=== PATIENT | male | born 1940 | race Caucasian/White ===

== ENCOUNTER 2019-09-13 11:18 | Inpatient (IN) | payer MEDICARE, OTHER ==
[2019-09-13 12:21] LABS: Bacteria/HPF None Seen HPF (None Seen); Bilirubin Negative (Negative); Blood, Urine 2+ (Negative); Clarity Clear (Clear); Glucose, Urine (Dipstick) Normal (Negative); Leukocyte Negative Leu/uL (Negative); Nitrite Negative (Negative); Protein, Urine (Dipstick) 70 mg/dL (Neg-Trace); RBC/HPF 0-3 HPF (0-3); Squamous Epithelial None Seen HPF (0-3); Urobilinogen Normal mg/dL (Less than 2); WBC/HPF 0-3 HPF (0-3)
[2019-09-13 12:21] LABS: #Lymphocytes 0.4 thou/uL (1.20-3.40); #Monocytes 0.7 thou/uL (0.11-0.59); #Neutrophils 7.1 thou/uL (1.40-6.50); %Basophils 0.2 % (0.0-1.0); %Eosinophils 0.1 % (0.0-10.0); %Lymphocytes 4.3 % (21.0-51.0); %Monocytes 8.8 % (0.0-10.0); %Neutrophils 86.6 % (42.0-75.0); Hemoglobin 13.7 g/dL (14.0-18.0); Mean Corpuscular HGB CONC 33.7 g/dL (32.0-36.0); Mean Corpuscular Hemoglobin 32.5 pg (27.0-31.0); Mean Corpuscular Volume 96.5 fL (78.0-98.0); Mean Platelet Volume 8.6 fL (7.4-10.4); Platelet Count 154 thou/uL (130-400); RBC Distribution Width 12.9 % (11.5-14.5); Red Blood Cell (RBC) Count 4.22 mill/uL (4.70-6.10); White Blood Cell (WBC) Count 8.2 thou/uL (4.8-10.8)
[2019-09-13 12:27] LABS: Amphetamine Not Detected (NotDetected); Barbiturates Screen Not Detected (NotDetected); Benzodiazepine Screen Not Detected (NotDetected); Cocaine Metabolite Screen Not Detected (NotDetected); Medtox Control Line Valid? VALID (VALID); Medtox Reader # READER 4; Methadone Not Detected (NotDetected); Methamphetamine Not Detected (NotDetected); Opiate Screen Not Detected (NotDetected); Oxycodone Screen Not Detected (NotDetected); Phencyclidine (PCP) Not Detected (NotDetected); THC/Cannabinoid Screen Not Detected (NotDetected); Tricyclic Screen Not Detected (NotDetected)
[2019-09-13 12:30] LABS: INR-International Normal Ratio 1.1; PTT 25.4 sec (22.9-36.1)
[2019-09-13 12:41] LABS: ALT (SGPT) 21 U/L (8-55); AST (SGOT) 35 U/L (5-34); Acetaminophen Less than 6.0 mcg/mL (10.0-30.0); Albumin 3.2 g/dL (3.4-4.8); Alcohol Less than 10 mg/dL (Less than 10); Alkaline Phosphatase 79 U/L (40-110); Anion Gap 18 mmol/L (10-20); BUN (Urea Nitrogen) 34 mg/dL (8.4-25.7); CK (CPK) 658 U/L (30-200); Calc. Creatinine Clearance 0 mL/min (70-130); Calcium 8.2 mg/dL (7.8-10.44); Carbon Dioxide 17 mmol/L (23-31); Chloride 106 mmol/L (98-107); Estimated GFR-MDRD 37; Globulin 2.9 g/dL (2.4-3.5); Glucose 115 mg/dL (83-110); Lipase 16 U/L (8-78); Protein, Total 6.1 g/dL (5.8-8.1); Salicylate Less than 8.0 mg/dL (15.0-30.0); Sodium 137 mmol/L (136-145)
[2019-09-13 12:45] LABS: D-Dimer Test 19.05 *mcg/mL (0.27-0.43)
[2019-09-13] MEDS ORDERED: Aspirin 325 MG TAB ONE (12:58)
[2019-09-13] MEDS ORDERED: Acetaminophen/Codeine 30-300mg Tablet ONE (12:58)
[2019-09-13 13:01] LABS: CKMB 4.1 ng/mL (0-6.6)
--- NOTE | 2019-09-13 13:24 | CT ---
HEAD CT WITHOUT CONTRAST: Date: 09-13-2019 Comparison: None History: Found down. Slurred speech. History of stroke. Technique: Axial CT imaging at 5 mm intervals from vertex through skull base without contrast. FINDINGS: The visualized paranasal sinuses and mastoid air cells are well aerated. There is no displaced calvar ial fracture. There is atherosclerotic calcification of the cavernous carotid arteries. There is prominent diffuse cerebral volume loss. There is encephalomalacia within the frontal and par ietal lobe on the right, suggesting extensive prior right sided infarction. There is also encephaloma lacia within the occipital lobes suggesting areas of prior infarction, right greater than left. No in tracranial hemorrhage, midline shift, or mass effect. IMPRESSION: Findings suggesting numerous areas of prior infarction as detailed above, primarily right sided. No i ntracranial hemorrhage. POS: LA
[2019-09-13 13:30] LABS: Actual Bicarbonate (HCO3a) 17.1 mEq/L (22-28); Analyzer IN Cardio ER; Base Excess (BEa) -4.5 mEq/L (-2.0 to +3.0); Carboxyhemoglobin (COHb) 0.7 gm% (0.0-3.0); Hemoglobin (Hb) 14.6 g/dL (14.0-18.0); Potassium - ABG Lab 3.76 mmol/L (3.70-5.30); pH, Arterial 7.47 (7.35-7.45)
[2019-09-13 13:34] LABS: CO2 Tension 24.1 mmHg (35.0-45.0)
[2019-09-13 13:35] LABS: ALV-art Gradient 63.105 (0-20); O2 Tension (PaO2), arterial 56.5 mmHg (> 60.0); Puncture Site RRA
--- NOTE | 2019-09-13 13:35 | CT ---
CT OF CERVICAL SPINE WITHOUT CONTRAST: Date: 09-13-2019 Comparison: None History: Found down, slurred speech. Technique: Axial CT imaging at 2.5 mm intervals through the cervical spine noted with coronal and sag ittal reformatted imaging. FINDINGS: There is incompletely imaged interstitial and alveolar/ground glass opacity within the left upper lob e. There is partial opacification of the mastoid air cells bilaterally. The occipital condyles, the dens, the C1 ring, the craniocervical junction and the cervicothoracic ju nction demonstrate no acute findings. There is prominent degenerative change involving the atlantoaxi al interspace. There is prominent disc space narrowing with degenerative endplate change at C3-4, C4- 5, C5-6, and C6-7 with posterior osteophyte causing multilevel central canal stenosis. Bilateral face t and uncal vertebral osteophyte formation at these levels causes bilateral neural foraminal stenosis . There is no prevertebral soft tissue swelling. No displaced fracture or dislocation is seen. There is a hypodense nodule in the left lobe of the thyroid gland measuring 2.7 cm. IMPRESSION: 1. Incompletely imaged interstitial and alveolar opacities within the left upper lobe which suggests infectious pneumonitis or aspiration. Correlation with a chest radiograph is suggested. 2. Multilevel cervical spine degenerative change with no acute facture or dislocation. 3. Left thyroid nodule for which follow up thyroid ultrasound is advised. POS: LA
[2019-09-13] MEDS ORDERED: cefTRIAXone\\ROCEPHIN 1 GM VIAL ONE (13:45)
[2019-09-13] MEDS ORDERED: Azithromycin 500 MG VIAL ONE (13:50)
--- NOTE | 2019-09-13 14:02 | RAD ---
RIGHT HIP TWO PORTABLE VIEWS: History: Found down. FINDINGS: Degenerative changes at the hip. No acute fracture identified. IMPRESSION: No evidence of acute fracture. POS: AGW
--- NOTE | 2019-09-13 14:02 | RAD ---
LEFT ELBOW THREE PORTABLE VIEWS: FINDINGS: The positioning is suboptimal. No definite fracture identified. IMPRESSION: No acute finding identified. POS: AGW
--- NOTE | 2019-09-13 14:05 | RAD ---
LEFT HIP TWO VIEWS, PORTABLE: Indication: Patient was found down. FINDINGS: No evidence of fracture. Mild degenerative change. IMPRESSION: No acute fracture identified. POS: AGW
[2019-09-13] MEDS ORDERED: Iopamidol-370 76% 500 ML 1 ML ONE (14:17)
--- NOTE | 2019-09-13 14:17 | RAD ---
PORTABLE CHEST: Indications: Change in mental status. FINDINGS: There are hazy bilateral infiltrates in the mid and lower lung polanco bilaterally. Heart size is with in normal range. There is mild vascular congestion. IMPRESSION: Hazy bibasilar infiltrates. POS: AGW
[2019-09-13 14:57] LABS: Lactic Acid 1.9 mmol/L (0.5-2.2)
--- NOTE | 2019-09-13 15:05 | CT ---
CTA CHEST WITH CONTRAST: Technique: Axial tomograms were obtained following angio protocol with multiplanar reconstructions an d 3D post processing. Indications: Person found down. FINDINGS: No evidence of pulmonary embolus identified. Thoracic aorta shows atherosclerotic change. No evidence of dissection. Mediastinum unremarkable with nonspecific mediastinal and hilar lymph nodes. Review of the lungs show cardiomegaly with vascular congestion. Diffuse interstitial thickening is se en bilaterally. There is hazy ground glass opacity in the left upper lobe. Hazy ground glass opacity in the right mid dle lobe and right lower lobe. These areas of ground glass opacities may represent areas of acute inf iltrate. These areas of infiltrate are superimposed on chronic lung changes. There is honeycombing in both posterior lower lobes, more prominent on the right. Prominent parenchymal stranding seen bilate rally. IMPRESSION: 1. No evidence of pulmonary embolus. 2. Chronic lung changes seen as described above. There are areas of ground glass opacity scattered th roughout both lungs as described above. There is cardiomegaly and vascular congestion. Consideration to include edema, although the localized nature of the ground glass opacities would be concerning for areas of localized inflammatory infiltrate superimposed on congestion, edema, and chronic lung sewell deni. POS: AGW
[2019-09-13] MEDS: Sodium Chloride 0.9% 1,000 ML IV SCH (17:50)
[2019-09-13 18:09] VITALS: BMI 16.7
--- NOTE | 2019-09-13 19:11 | HP ---
CHIEF COMPLAINT: Fall. HISTORY OF PRESENT ILLNESS: This patient is an 79-year-old male, who has been living at home. His son and [id number] moved in with him about a year ago. The patient was generally pretty functional; however, a couple of months ago, he appeared to have some stroke-like symptoms, but did not want to come for evaluation partly because of coronavirus concerns. He subsequently over the past 4 to 5 days has had increased lethargy, sleeping more, and very poor p.o. intake according to his son. Today is his son's anniversary and he went out of town yesterday about 11 o'clock. He asked the neighbors to check on him, who have known him for many years. Apparently yesterday, he was doing about the same, but today, they went to check on him and he was on the bathroom floor and had a left elbow skin tear. He was unable to speak intelligibly and subsequently was brought to the emergency department for further evaluation. It is unknown how long the patient was actually on the floor, but certainly, it was likely less than 12 hours. The patient's son reports that his speech has gotten much worse over the last day or so that the patient has had some persistent weakness on the left side since his symptoms about 2 months ago. They report the patient is able to feed and bathe himself and go to the bathroom, but again for the last 5 days, he has had worsening generalized weakness. REVIEW OF SYSTEMS: Only noted as above. The patient is unable to give any additional history. The patient's son does believe that he has lost about 10 pounds over the last month, however. PAST MEDICAL HISTORY: Notable for hypertension. However, the patient's son says that they check his blood pressure routinely and it is more often on the low side than the high side. Therefore, they do not give him any blood pressure medications. Again is noted above, it sounds like they were describing a stroke-like event about 2 months ago resulting in some left-sided weakness and some speech deficits during that time as well. PAST SURGICAL HISTORY: The patient has had skin cancer removal. He had a lesion on his scalp that apparently required some type of skin flap, but details of that are not clear. FAMILY HISTORY: Nothing known that is contributory. SOCIAL HISTORY: The patient smokes 2 to 3 packs of cigarettes per day. No alcohol. He is a . He is full code and his son, Brett, who is with him here today would be his surrogate decision maker should that become necessary. ALLERGIES: CODEINE, MEPERIDINE, AND PENICILLIN. CURRENT MEDICATIONS: Aspirin. PHYSICAL EXAMINATION: VITAL SIGNS: On arrival, BP 152/75, pulse is 118, respirations 17, temperature 98.0, O2 saturations 87% on room air. Currently, BP 143/78, pulse 99, respirations 23, temperature is 97.5 axillary, and he is 100% on room air. GENERAL APPEARANCE: The patient is very thin. He is unkempt. He is supine in the exam bed. His speech is basically unintelligible, although, he does appear to understand reasonably well and can occasionally appropriately answer one or two words appropriately that are understandable. HEENT: PERRL. He has no OP lesions. NECK: Supple and symmetric. HEART: Regular without murmurs. LUNGS: Clear bilaterally, although, the exam is very limited by the disposable stethoscope. ABDOMEN: Soft, nontender, and nondistended. Positive bowel sounds. No masses. No organomegaly. EXTREMITIES: No cyanosis, clubbing, or edema. SKIN: Reveals extremely darkened skin, generally appears to be chronic sun exposure. Multiple superficial scars from what appeared to be some prior skin biopsies. NEURO: Again, the patient's speech is garbled. He appears to have left-sided facial droop. He has no significant movement in his left upper extremity. He is able to lift his left leg off the bed, but cannot seem to get him to cooperate with the other elements of the exam. LABORATORY DATA: White count 8.2, hemoglobin 13.7, platelets 154. INR is 1.1, PTT is 25.4. Blood gas; pH 7.47, pCO2 of 24, PO2 is 56. Sodium 137, potassium 4.0, chloride 106, CO2 of 17, BUN 34, creatinine is 1.77, glucose 115. Initial lactic acid was 2.9, subsequent was 1.9. Total bilirubin 1.0, AST 35, ALT 21, ammonia 24. CK 658. Troponin 0.116, subsequent 0.135. BNP 59.2. Albumin 3.2. Urinalysis; largely unremarkable trace protein. Urine drug screen negative. Alcohol negative. CT scan of the brain suggests numerous areas of prior infarct. These include areas in the frontal and parietal lobe on the right suggesting extensive prior right- sided infarction, encephalomalacia within the occipital lobe suggesting prior infarction, right greater than the left. There is no intracranial hemorrhage present. C- spine incompletely imaged. Interstitial and alveolar opacities within the lung noted. Multilevel cervical spine degenerative changes. Left thyroid nodule. Left elbow negative. Hip x-rays, no fracture. Chest x-ray, hazy bibasilar infiltrates. CTA, no PE, chronic lung changes seen with honeycombing in both posterior lower lobes , more prominent on the right. Areas of ground-glass opacity scattered throughout both lungs. There are cardiomegaly and vascular congestion, considerations to include edema, although, localized nature of the ground-glass opacities would be concerning for local inflammatory infiltrate superimposed on congestion edema and chronic lung changes. EKG; sinus tach with some left atrial enlargement, pulse 106, no ischemic findings. IMPRESSION AND PLAN: 1. Pneumonia. The patient has bilateral infiltrates, which have a ground-glass appearance are peripheral and could represent a bacterial or viral pneumonia or less likely some pulmonary edema. We will cover with antibiotics for community- acquired pneumonia with Rocephin and azithromycin. Some consideration should probably be given to aspiration pneumonitis. Given his recent strokes, will no more once he has speech therapy evaluation. The patient's son does not give any history of him having much in the way of swallowing difficulties, although, he has been losing weight. He will have a COVID test sent and he will remain in isolation until the results are known. Concerning features for possible COVID include the normal white count along with the very elevated D-dimer. 2. Acute hypoxic respiratory failure. Likely a chronic component given his smoking history. It is unclear what the patient's long-term status is. He is a 2-3 pack per day smoker and has chronic lung disease on CT. He was initially saturating 87% on room air in the emergency department; however, subsequent O2 saturations were better at 100% on RA. He has p.r.n. oxygen ordered to keep sats around 92%. 3. Suspected COVID-19 infection. Again, he has a normal white count, very elevated D-dimer, and CT scan findings concerning for possible COVID type picture. He will remain in isolation until COVID test is back. We will not start dexamethasone at this time as the picture is not entirely clear. I am going to order CRP and ferritin to establish baseline for this patient. 4. Cerebrovascular accident. The patient has symptoms of a stroke with basically left upper extremity paralysis, left facial droop, and currently with some garbled speech. I suspect his decline currently is because of some underlying infection ; however, a new stroke cannot entirely be ruled out at this time. He needs an MRI of the brain, however, that likely will not happen until COVID is ruled out. We will go ahead and order the MRI, Speech Therapy, Physical Therapy, Occupational Therapy, and Neuro Consult. We will keep him on aspirin and start a statin. Keep him on telemetry. Order echocardiogram and carotid Dopplers. 5. Chronic kidney disease, stage 3B. We do have labs in the system going back to December of 2017, at which time, his GFR was 36 and he is at his baseline now. 6. Mild rhabdomyolysis with a CK of 658. We will need to recheck that likely due to his fall and being down. High risk because of CKD and advanced age. 7. Elevated troponin. Given the patient's age and renal function, these are likely consistent baseline numbers for him and not likely representing ischemia. We will continue to follow serial troponins. 8. Mild metabolic acidosis, with respiratory alkalosis, likely due to his chronic kidney disease and acute infection. He has received significant fluid resuscitation for sepsis protocol, ultimately receiving 2 L. I am trying to avoid being overly aggressive with the fluids at this point as there is potentially some concern for pulmonary edema on his chest imaging, although, his BNP was normal at 59.2. He is generally hemodynamically stable otherwise. DISPOSITION: Unfortunately, the patient appears to be somewhat unkempt. He has presumably been providing most of his own senior living type care at home, not sure that will be a good option going forward and will likely need to get Case Management involved prior to discharge. We will go ahead and put that consult in. Job ID: [id number] [facility]
[2019-09-13 19:26] LABS: Actual Bicarbonate (HCO3a) 15.7 mEq/L (22-28); Base Excess (BEa) -5.7 mEq/L (-2.0 to +3.0); Calcium, Ionized (arterial) 1.09 mmol/L (1.12-1.30); Carboxyhemoglobin (COHb) 0.7 gm% (0.0-3.0); Hemoglobin (Hb) 13.9 g/dL (14.0-18.0); Potassium - ABG Lab 3.76 mmol/L (3.70-5.30); pH, Arterial 7.47 (7.35-7.45)
[2019-09-13 19:28] LABS: CO2 Tension 21.8 mmHg (35.0-45.0)
[2019-09-13 19:29] LABS: Puncture Site RR
[2019-09-13] MEDS: Atorvastatin Calcium 40 MG TAB PO SCH (22:09)
[2019-09-14 02:01] LABS: Actual Bicarbonate (HCO3a) 14.5 mEq/L (22-28); Base Excess (BEa) -6.7 mEq/L (-2.0 to +3.0); Carboxyhemoglobin (COHb) 0.4 gm% (0.0-3.0); O2 Tension (PaO2), arterial 68.5 mmHg (> 60.0); Potassium - ABG Lab 3.63 mmol/L (3.70-5.30); pH, Arterial 7.47 (7.35-7.45)
[2019-09-14 02:02] LABS: CO2 Tension 20.3 mmHg (35.0-45.0); Puncture Site LRA
[2019-09-14 02:03] LABS: ALV-art Gradient 262.625 (0-20)
--- NOTE | 2019-09-14 02:20 | PDOC.EVN ---
Event Note - Event Note Event Note: Patient over time becoming tachypneic and was desaturating on floor, moved to IMCU on HFNC now again in 40s, ABG with sufficient oxygenation and saturation is 95-100%, however somewhat altered, may be from alkalosis, not yet intubation candidate but is full code will monitor closely and move to CCU and place pulmonary consult for AM.
[2019-09-14 04:11] LABS: Anion Gap 19 mmol/L (10-20); BUN (Urea Nitrogen) 34 mg/dL (8.4-25.7); CK (CPK) 1997 U/L (30-200); Calc. Creatinine Clearance 32 mL/min (70-130); Calcium 7.8 mg/dL (7.8-10.44); Carbon Dioxide 13 mmol/L (23-31); Cardiac Risk 8.5 (Less than 4.5); Chloride 113 mmol/L (98-107); Cholesterol 128 mg/dl (< 200 Desired); Estimated GFR-MDRD 39; Glucose 106 mg/dL (83-110); HDL Cholesterol 15 mg/dL (>60 Neg Risk); LDL Cholesterol, Calculated 76 mg/dL; Potassium 3.6 mmol/L (3.5-5.1); Sodium 141 mmol/L (136-145); Triglycerides 186 mg/dL (Less than 150)
[2019-09-14 04:28] LABS: Band 6 % (5-11); Hemoglobin 13.7 g/dL (14.0-18.0); Hypochromia SLIGHT = 6-15 cells (100X) (0-5/hpf); Lymphocytes 4 % (21-51); MDiff Complete? YES; Mean Corpuscular HGB CONC 34.5 g/dL (32.0-36.0); Mean Corpuscular Hemoglobin 32.5 pg (27.0-31.0); Mean Platelet Volume 9.1 fL (7.4-10.4); Monocytes 8 % (0-10); Neutrophil 82 % (42-75); Platelet Count 174 thou/uL (130-400); Platelet Morphology Comment Appears Adequate; RBC Distribution Width 12.7 % (11.5-14.5); Red Blood Cell (RBC) Count 4.21 mill/uL (4.70-6.10); White Blood Cell (WBC) Count 10.8 thou/uL (4.8-10.8)
[2019-09-14] MEDS: Aspirin 325 mg Enteric Coated Tablet PO SCH (07:07)
[2019-09-14 08:08] LABS: Troponin I 0.333 ng/mL (< 0.028)
[2019-09-14] MEDS ORDERED: Enoxaparin Sodium 40 MG/0.4 ML SYRINGE SC SCH ×2 (09:00→21:00)
[2019-09-14] MEDS ORDERED: Prevnar 13-Val Conj/PF 0.5 ML SYRINGE IM ONE (09:00)
[2019-09-14] MEDS: cefTRIAXone\\ROCEPHIN 1 GM in Sodium Chloride 0.9% 100 ML IVPB SCH (11:28)
[2019-09-14] MEDS: Sodium Chloride 0.9% 1,000 ML IV SCH (11:32)
--- NOTE | 2019-09-14 12:01 | EKG ---
Test Reason : FALL Blood Pressure : / mmHG Vent. Rate : 106 BPM Atrial Rate : 106 BPM P-R Int : 124 ms QRS Dur : 074 ms QT Int : 336 ms P-R-T Axes : 091 -24 010 degrees QTc Int : 446 ms Poor data quality, interpretation may be adversely affected Sinus tachycardia Possible Left atrial enlargement Nonspecific ST and T wave abnormality Abnormal ECG Confirmed by VINAY CERRATO, WILBERTO ([id number]), editor in chief newspaper TETE RIVERA ([id number]) on 09/14/2019 12:01:26 PM Referred By: VINAY Confirmed By:WILBERTO MCLEAN MD
[2019-09-14] MEDS: Azithromycin 500 MG in Sodium Chloride 0.9% 250 ML 250 ML IVPB SCH (12:28)
--- NOTE | 2019-09-14 13:56 | CON ---
NEUROLOGY CONSULTATION DATE OF CONSULTATION: 09/14/2019 REASON FOR CONSULTATION: Stroke. HISTORY OF PRESENT ILLNESS: Mr. Brett Dumas is an 79-year-old male, who was consulted for stroke-like symptoms. The patient lives at home with his son and [id number] who moved with him recently and he was pretty functional. However, he developed some stroke-like symptoms a 2 months ago. The patient did not get evaluated for those symptoms because of concern about coronavirus. According to the son, over the past few days, he has been extremely lethargic and was more somnolent with poor intake. The son has gone out of town and asked the neighbors to check on him and they found him extremely confused, so they decided to call 911 and bring him to the emergency room for further evaluation. His speech was also worse and he has weak on the left side of the body, which has worsened. This weakness started 2 months ago, but he was still able to feed himself and go to the restroom, but since the last 5 days , he had worsening generalized weakness in addition to the left-sided weakness, and his speech is also to worsened and became extremely somnolent. REVIEW OF SYSTEMS: Unobtainable due to mental status. PAST MEDICAL HISTORY: Hypertension, left-sided deficits for the last 2 months. PAST SURGICAL HISTORY: Skin cancer removal. FAMILY HISTORY: No significant family history. SOCIAL HISTORY: The patient smokes 2 to 3 packs of cigarettes per day. Denies alcohol. He is a . He lives with his son and [id number]. ALLERGIES: CODEINE, MEPERIDINE, PENICILLIN. CURRENT MEDICATIONS: Aspirin. PHYSICAL EXAMINATION: VITAL SIGNS: Blood pressure 150/70, pulse 100, respirations 18. GENERAL APPEARANCE: Ill-appearing. HEENT: Normocephalic, atraumatic. CARDIOVASCULAR SYSTEM: Regular rate and rhythm. CHEST: Clear. ABDOMEN: Soft. NEUROLOGIC: Mental status: The patient is extremely somnolent. He opens eyes to verbal stimuli, does not track, does not follow commands. Cranial nerves: Pupils are equal and reactive to light. Left facial droop. Corneals are positive. He moves neck in both directions. Hearing seems to be intact. He is extremely somnolent and did not speak a single word. Motor: He did not cooperate with the exam. Withdraws in all 4 extremities to nailbed pressure, right greater than left. Reflexes: Deferred. Sensory: Withdraws in right upper and lower extremities greater than left upper and lower extremities to nailbed pressure. Gait: Deferred due to the patient's safety reasons. DATA REVIEWED: I reviewed the labs and the CT scan of the head, which shows numerous prior infarcts. These also include areas in the frontal and parietal lobes of the prior infarctions. CT angiogram did not reveal any hemodynamically significant stenosis. Chest x-ray did show infiltrates. ASSESSMENT AND PLAN: Mr. Brett Dumas is consulted to rule out stroke because of left-sided weakness. He also has pneumonia with ground-glass appearance and bilateral infiltrates. Currently, he is being ruled out for COVID. Recommend MRI of the brain, 2D echo, and carotid Dopplers once the patient is ruled out for COVID. Consider aspirin and statin for secondary stroke prevention. PT/OT/Speech once the patient is ruled out. Continue telemetry. Continue medical management per primary team. Thank you for the consult. Job ID: [id number] [facility]
[2019-09-14 14:03] LABS: SARS-CoV-2 MS2 Positive; SARS-CoV-2 N Gene Positive; SARS-CoV-2 S Gene Positive; SARS-CoV-2 orf1ab Positive
--- NOTE | 2019-09-14 15:07 | PDOC.HOSPP ---
- Subjective Encounter Date: 09/14/19 Subjective: Reviewed the chart. got update from the nursing, stable to come to [facility] obs., mentation remains the same, not following commands. Pulm initiated the transfer to obs area. sating 97% w.. 3 li O2. - Objective Vital Signs & Weight: Vital Signs (12 hours) Temp Pulse Ox 09/14/19 14:55 99.4 F 09/14/19 13:08 97 09/14/19 11:09 100 09/14/19 08:00 99 F 09/14/19 07:39 99 09/14/19 07:00 99 F 09/14/19 06:58 100 09/14/19 04:00 100 Weight Admit Weight 145 lb Weight 145 lb 6.4 oz Most Recent Monitor Data Heart Rate from ECG 82 NIBP 120/57 NIBP BP-Mean 78 Respiration from ECG 30 SpO2 95 I&O: 09/13/19 09/14/19 09/15/19 06:59 06:59 06:59 Intake Total 447 0 Output Total 980 Balance 447 -980 Result Diagrams: 09/14/19 03:17 09/14/19 03:17 Hospitalist ROS - Medication Medications: Active Medications Generic Name Dose Route Start Last Admin Trade Name Freq PRN Reason Stop Dose Admin Aspirin 325 mg 09/14/19 09:00 09/14/19 07:07 Ecotrin PO 325 mg DAILY JASON Administration Atorvastatin Calcium 40 mg 09/13/19 21:00 09/13/19 22:09 Lipitor PO Not Given HS JASON Enoxaparin Sodium 40 mg 09/14/19 09:00 09/14/19 07:07 Lovenox SC 40 mg 0900 JASON Administration Azithromycin 500 mg/ Sodium 250 mls @ 250 mls/hr 09/14/19 14:00 09/14/19 12: 28 Chloride IVPB 250 mls 1400 JASON Administration Ceftriaxone Sodium 1 gm/ 100 mls @ 200 mls/hr 09/14/19 13:00 09/14/19 11:28 Sodium Chloride IVPB 100 mls 1300 JASON Administration Sodium Chloride 1,000 mls @ 50 mls/hr 09/13/19 16:15 09/14/19 11:32 Normal Saline 0.9% IV 1,000 mls .Q20H JASON Administration Hosp A/P - Plan COVID Penumonia hypoxic res failure d/t abvoe Metabolic encephalopathy 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 3 li at 97% --stable to transfer to obs unit, though it appers his mentation is not at baseline -- added decadron, switched lovenox to bid doses --fw periodically ferritin, d-dimer and crp. appreciate help from Dr. Canas. - DNR -palliative c/s placed.
--- NOTE | 2019-09-14 16:53 | CON ---
DATE OF CONSULTATION: 09/14/2019 HISTORY OF PRESENT ILLNESS: Brett Dumas is an 79-year-old male. His son moved in with him 4 months ago. According to the nurses, he had the appearance of not having bathes for months. He apparently has been spending a lot of time in bed lately according to his son. He has been hard to wake up. Son left town and asked neighbors to check on him, so they called an ambulance. He subsequently has been admitted. He is unable to give a history. PAST MEDICAL HISTORY: Remarkable for: 1. CVA. 2. History of hypertension. 3. History of skin cancer. FAMILY HISTORY: Negative for lung disease in early age. SOCIAL HISTORY: Son says all he does is sit in his room and smoke 2-3 packs of cigarettes a day. He is not a daily drinker. He has lost his . REVIEW OF SYSTEMS: Ten points unobtainable. ALLERGIES: REPORTS ALLERGIES TO DEMEROL, CODEINE, AND PENICILLIN. MEDICATIONS: Prior to admission, he was on aspirin. PHYSICAL EXAMINATION: GENERAL: He is in no distress. He is nonverbal. He moves all 4 extremities spontaneously, will not follow commands. VITAL SIGNS: He is afebrile, heart rate 82, blood pressure 120/57, respiratory rates in the 20s, oximetry is in the mid 90s on a high-flow cannula 50%. HEAD AND NECK: Unremarkable. LUNGS: Distant and clear. HEART: Regular rhythm. ABDOMEN: Soft and nontender. EXTREMITIES: Without edema or asymmetry. NEUROLOGIC: He may have a left facial droop. It is impossible to assess strength. He is very disheveled, even though he has been aggressively bathed by his nurse. LABORATORY DATA: Chest radiograph shows bilateral infiltrates, although there is more lobar consolidation in the left upper lobe than the right lower lobe, suggesting maybe he has an aspiration component to this. His COVID screen is positive. White count is 10.8, hemoglobin 13.7, platelets 174. IMPRESSION: 1. COVID-19 pneumonia. 2. Possible coronavirus disease due to aspiration pneumonia. 3. History of cerebrovascular accident several months back. It is unclear what point in the COVID illness spectrum he has been in bed for quite some time. I would suspect he is at the tail end of this, but there is no way to figure this out. We will continue supportive care. I had a long discussion about end-of-life issues with the son who wants him to be a do not resuscitate patient. This is witnessed by Mynor Brock, his nurse as well. This is a 70 min consult with greater than 50% of the time spent on unit with coordination of care. Job ID: [id number] [facility]
[2019-09-14] MEDS: Atorvastatin Calcium 40 MG TAB PO SCH (22:40)
--- NOTE | 2019-09-14 23:39 | PDOC.EVN ---
Event Note - Event Note Event Note: Notified by RN, patient with increased secretions. Due to COVID rule out, requesting scopolamine patch to help decrease secretions and lessen frequency of suction patient is requiring.
[2019-09-14] MEDS ORDERED: Scopolamine 1.5 mg/72 hour Patch TD SCH (23:59)
[2019-09-15] MEDS ORDERED: Enoxaparin Sodium 40 MG/0.4 ML SYRINGE SC SCH (09:00)
[2019-09-15] MEDS: Dexamethasone 4 mg/ml Vial SLOW IVP SCH (09:05)
[2019-09-15] MEDS: Aspirin 325 mg Enteric Coated Tablet PO SCH (09:05)
[2019-09-15] MEDS: Sodium Chloride 0.9% 1,000 ML IV SCH (09:07)
[2019-09-15] MEDS: cefTRIAXone\\ROCEPHIN 1 GM in Sodium Chloride 0.9% 100 ML IVPB SCH (12:29)
[2019-09-15] MEDS ORDERED: Morphine 2 MG/ML SYRINGE SLOW IVP PRN (13:38)
[2019-09-15] MEDS: Azithromycin 500 MG in Sodium Chloride 0.9% 250 ML 250 ML IVPB SCH (14:21)
[2019-09-15] MEDS: Morphine 4 MG/ML VIAL SLOW IVP PRN ×2 (14:21→16:52)
--- NOTE | 2019-09-15 15:26 | PDOC.HOSPP ---
- Subjective Encounter Date: 09/15/19 Encounter Time: 11:20 Subjective: pt on high flow O2 at 40 and sating 96% pt had a temp this am. he does not look well, tachypnic. blood royal of 28th - no growth, on CTX, zithro. ID visited him this afternoon. - Objective Vital Signs & Weight: Vital Signs (12 hours) Temp Pulse Resp BP Pulse Ox 09/15/19 09:57 100.2 F H 97 48 H 148/68 H 97 09/15/19 08:00 97 09/15/19 05:00 98.4 F 101 H 41 H 165/76 H 96 Weight Admit Weight 145 lb Weight 145 lb 6.4 oz Most Recent Monitor Data Heart Rate from ECG 85 NIBP 156/80 NIBP BP-Mean 105 Respiration from ECG 27 SpO2 96 I&O: 09/14/19 09/15/19 09/16/19 06:59 06:59 06:59 Intake Total 447 1366 Output Total 1590 Balance 447 -224 Result Diagrams: 09/14/19 03:17 09/14/19 03:17 Hospitalist ROS - Medication Medications: Active Medications Generic Name Dose Route Start Last Admin Trade Name Freq PRN Reason Stop Dose Admin Aspirin 325 mg 09/14/19 09:00 09/15/19 09:05 Ecotrin PO Not Given DAILY JASON Atorvastatin Calcium 40 mg 09/13/19 21:00 09/14/19 22:40 Lipitor PO Not Given HS JASON Dexamethasone 6 mg 09/15/19 09:00 09/15/19 09:05 Decadron SLOW IVP 6 mg DAILY JASON Administration Enoxaparin Sodium 40 mg 09/15/19 09:00 09/15/19 09:06 Lovenox SC 40 mg DAILY JASON Administration Azithromycin 500 mg/ Sodium 250 mls @ 250 mls/hr 09/14/19 14:00 09/15/19 14: 21 Chloride IVPB 250 mls 1400 JASON Administration Ceftriaxone Sodium 1 gm/ 100 mls @ 200 mls/hr 09/14/19 13:00 09/15/19 12:29 Sodium Chloride IVPB 100 mls 1300 JASON Administration Sodium Chloride 1,000 mls @ 50 mls/hr 09/13/19 16:15 09/15/19 09:07 Normal Saline 0.9% IV 1,000 mls .Q20H JASON Administration Morphine Sulfate 4 mg 09/15/19 13:37 09/15/19 14:21 Morphine SLOW IVP 4 mg Q1H PRN Administration AIR HUNGER Scopolamine 1.5 mg 09/14/19 23:59 09/14/19 23:55 Transderm Scop TD 1.5 mg Q3D JASON Administration - Exam ENT: normocephalic atraumatic Neck: supple Hosp A/P - Plan COVID Penumonia hypoxic res failure d/t abvoe Metabolic encephalopathy 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 3 li at 97% --stable to transfer to obs unit, though it appers his mentation is not at baseline -- added decadron, switched lovenox to bid doses --fw periodically ferritin, d-dimer and crp. appreciate help from Dr. Canas. - DNR -palliative c/s placed. 30th pt on high flow O2 at 40 and sating 96% TAchypnic, high BP high inflam'y markers CRP 18 Narinder 1379 Cr 1.6 -will follow the trend in the above markers -worsening resp..situation and fever -royal neg. [] -talk to RN, if temp >100.4, repeat the blood royal -ID saw him today, will wait for the input. -scopalamine, morphine -- lopressor and hydralazine PRN for high BP -adapt comfort care measures for the most part. Poor prognosis.
[2019-09-15] MEDS ORDERED: hydrALAZINE 20 MG/ML VIAL SLOW IVP PRN (15:39)
[2019-09-15] MEDS ORDERED: Metoprolol Tartrate 5 MG/5 ML VIAL IVP PRN (15:39)
--- NOTE | 2019-09-15 16:06 | CON ---
DATE OF CONSULTATION: 09/15/2019 REASON FOR CONSULTATION: COVID pneumonia. HISTORY OF PRESENT ILLNESS: An 79-year-old with history of prior CVA in July of this year. Reportedly, the patient was not formally evaluated in any medical setting because family was afraid of acquiring COVID infection, so they did not bring him to a medical attention. Anyway, he was found on the floor of the bathroom, unable to care for self, and was brought to the hospital. Apparently, family had left town. On arrival, BP 150/75, pulse 118, temperature 98, and O2 saturations were 87 on room air and 100 later on, still reportedly on room air. He was poorly groomed, appeared somewhat cachectic. He was oriented to self, place, and time. There was scarring in the right scalp from a previous skin biopsy, dry oral mucosa, and he is tachycardic, but no murmurs. Lungs with clear breath sounds. Initial findings included a white cell count 8.2, hemoglobin 13.7, platelets 154, and 86% neutrophils. D-dimer is 19. A pH 7.47, pCO2 of 24, and pO2 of 56. Sodium 137 and creatinine 1.77. AST was 35, ALT 21, and alkaline phosphatase 79. CK of 658 and troponin 0.116. Albumin 3.2. COVID was positive. The duration of illness is not clear. Thus far, he has received Rocephin, azithromycin, and Decadron. Apparently, Palliative Care has come to visit the patient. He has a do not resuscitate order. Currently, Mr. Dumas is awake, but he does not interact with the examiner, does not follow commands. He is tachypneic. MEDICAL HISTORY: 1. Prior CVA. 2. Malnutrition. 3. Hypertension. SURGICAL HISTORY: Skin cancer removal on the scalp area. FAMILY HISTORY: Not available. ALLERGIES: CODEINE AND PENICILLIN. SOCIAL HISTORY: Current smoker. A . Lives with son in town. CURRENT MEDICATIONS: 1. Electrolyte solution infusion. 2. Morphine. 3. Enoxaparin. 4. Decadron. 5. Ceftriaxone. 6. Azithromycin. PHYSICAL EXAMINATION: VITAL SIGNS: T-max 100.2, BP 140/60, pulse 97, respirations 48, and O2 saturation 97. SKIN: Area of excoriation in the back. Half of his pinna is missing, probably from surgical resection. There is an elbow laceration, which is irregular shaped, measuring about 1.5 cm to the left side. The patient has a peripheral IV access and has an indwelling Senior catheter. HEENT: Temporal wasting noted. Ocular movements are conjugate. Arcus senilis. Oral cavity with numerous missing teeth. NECK: Supple. No jugular vein distention. LUNGS: Symmetric air entry. No crackles or wheezing. HEART: S1 and S2. Regular rate with a short aortic murmur. ABDOMEN: Flat, scaphoid. No ascites. No organomegaly or bladder distention. EXTREMITIES: Marked atrophy of musculature of lower extremities. NEUROLOGIC: He has nonsustained clonus on the right side. His left side is weaker than the right with a decreased muscle tone and hyporeflexia. Plantar responses are indifferent on the left and upgoing on the right. He does not establish eye contact and does not interact with the examiner. LABORATORY DATA: Followup labs: White cell count 10.8, hemoglobin 13, and platelets 174 with 82% neutrophils. INR 1.1. Sodium 141 and creatinine 1.69, which is improved from admission. Ferritin is at 1379. CRP is at 18.35. Chest x-ray and CT of chest with ground-glass opacity changes in both lungs. Cervical spine CT with degenerative joint disease and thyroid nodule. ASSESSMENT: 1. Malnutrition. 2. Hypertension. 3. Prior cerebrovascular accident. 4. Now COVID pneumonia with severe manifestation, requiring high-flow O2. The patient has a do not resuscitate status and Palliative Care has evaluated the patient, unclear duration of illness on presentation. He is on Decadron and high-flow O2 and will continue with such interventions. Poor outcome is expected. Job ID: [id number]
--- NOTE | 2019-09-15 16:10 | PDOC.PALPN ---
Palliative Progress Note - Subjective High-flow O2, tachypnea. - Objective Vital Signs: Vital Signs - Most Recent Temp Pulse Resp BP Pulse Ox 100.2 F H 97 48 H 148/68 H 97 09/15/19 09:57 09/15/19 09:57 09/15/19 09:57 09/15/19 09:57 09/15/19 09:57 - Physical Exam Constitutional: cachectic, ill appearing, mild distress Respiratory: labored respirations Genitourinary: hill catheter Skin: fragile - Plan Plan: Communicated with patient son, understanding of fragile state of his father. Appreciates updates regarding his father. Patient receiving scopolamine to mitigate secretions. Morphine 4mg prn air hunger, encourage utilization of medication to ease distress of shortness of breath. Emotional support and Therapeutic listening offered. Will place bluetooth speaker in room to facilitate family talking to Mr Dumas 09/15. [30] minutes spent on this encounter with >50% of the time in counseling and coordination of care. - ROS Non Response: due to mental status
[2019-09-15] MEDS: Atorvastatin Calcium 40 MG TAB PO SCH (22:42)
[2019-09-16] MEDS: Sodium Chloride 0.9% 1,000 ML IV SCH ×2 (06:29→06:31)
[2019-09-16 06:53] LABS: Anion Gap 15 mmol/L (10-20); BUN (Urea Nitrogen) 63 mg/dL (8.4-25.7); Calc. Creatinine Clearance 24 mL/min (70-130); Calcium 7.7 mg/dL (7.8-10.44); Carbon Dioxide 16 mmol/L (23-31); Chloride 122 mmol/L (98-107); Estimated GFR-MDRD 29; Glucose 160 mg/dL (83-110); Potassium 3.9 mmol/L (3.5-5.1); Sodium 149 mmol/L (136-145)
[2019-09-16] MEDS: Enoxaparin Sodium 30 MG/0.3 ML SYRINGE SC SCH (09:18)
[2019-09-16] MEDS: Dexamethasone 4 mg/ml Vial SLOW IVP SCH (09:18)
[2019-09-16] MEDS: Aspirin 325 mg Enteric Coated Tablet PO SCH (09:19)
[2019-09-16] MEDS: Morphine 4 MG/ML VIAL SLOW IVP PRN ×2 (10:07→12:55)
--- NOTE | 2019-09-16 10:10 | PDOC.PALPN ---
Palliative Progress Note - Subjective Awake, non verbal - Objective Vital Signs: Vital Signs - Most Recent Temp Pulse Resp BP Pulse Ox 98.6 F 72 36 H 157/52 H 98 09/16/19 04:50 09/16/19 04:50 09/16/19 04:50 09/16/19 04:50 09/16/19 04:50 - Physical Exam Constitutional: cachectic, emaciated, encephalitic, ill appearing HEENT: moist MMs Respiratory: diminished lung sound, labored respirations, tachypnea Cardiovascular: RRR Gastrointestinal: incontinent Genitourinary: hill catheter Musculoskeletal: diffuse muscle atrophy Neurology: moves all 4 limbs Skin: bruising, fragile Deviation from normal: Oriented to self - Plan Plan: Education to give morphine more frequently PRN to mitigate accessory muscle use Increase Scopolamine to attempt to mitigate secretions, prevent aspiration as patient is having difficulty clearing. Emotional support offered to patient son. Will follow and revisit Goal of Care [30] minutes spent on this encounter with >50% of the time in counseling and coordination of care. - ROS Non Response: due to mental status
[2019-09-16] MEDS ORDERED: Scopolamine 1.5 mg/72 hour Patch TD SCH (11:00)
[2019-09-16] MEDS: cefTRIAXone\\ROCEPHIN 1 GM in Sodium Chloride 0.9% 100 ML IVPB SCH (12:46)
[2019-09-16] MEDS: Azithromycin 500 MG in Sodium Chloride 0.9% 250 ML 250 ML IVPB SCH (14:30)
--- NOTE | 2019-09-16 14:45 | PQF ---
CLINICAL DOCUMENTATION IMPROVEMENT CLARIFICATION FORM: ICD-10 Updated PLEASE DO AN ADDENDUM TO THE PROGRESS NOTE WITH ANY DOCUMENTATION UPDATES OR ADDITIONS AND CARRY THROUGH TO DC SUMMARY. THANK YOU. DATE: 09/16/2019 ATTN: Dr. Castellanos Please exercise your independent, professional judgment in responding to the clarification form. Clinical indicators are provided on the bottom of this form for your review Please check appropriate box(s) to clarify if the following diagnosis has been ruled in or ruled out: Sepsis [ x ] Ruled in diagnosis [x ] Continue to treat [ ] Resolved [ ] Ruled out diagnosis [ ] Improving [ ] Cannot rule out diagnosis [ Other diagnosis [ ] Unable to determine In addition, please specify: Present on Admission (POA): [ x ] Yes [ ] No [ ] Unable to determine For continuity of documentation, please document condition throughout progress notes and discharge summary. Thank You. CLINICAL INDICATORS - SIGNS / SYMPTOMS / LABS / RESULTS AND LOCATION IN MR ER Record 09/12: VS: BP 152/ 75, pulse 118, resp. 17. Temp. 98, O2 sat 87 RA DX: Sepsis Pneumonia H&P 09/12: Lab: Blood gas: PO2 56 Initial lactic acid 2.9, subsequent was 1.9 I/P: Pneumonia Acute hypoxic respiratory failure. 09/14 (Jasmin) COVID Pneumonia Hypoxic res failure Metabolic encephalopathy CVA w left hemiparesis RISKS: H&P 09/12: 79 yo. HTN. Pneumonia. Suspected COVID-19. CVA. CKD 3 TREATMENT: H&P 09/12: He has received significant fluid resuscitation for sepsis protocol. receiving 2 L. MAR: Order 09/12: IV Rocephin 1 gm MAR: Order 09/12: Zithromax 500mg IV Thank you, Bernice (This form is maintained as a part of the permanent medical record) 2014 [employer]. All Rights Reserved Bernice Carlin RN, BSN [email or web address] Cell [facility]
--- NOTE | 2019-09-16 15:24 | PDOC.HOSPP ---
- Subjective Encounter Date: 09/16/19 Encounter Time: 12:10 Subjective: lethargic, tachypnea;s ats 45 % w.. high flow O2. - Objective Vital Signs & Weight: Vital Signs (12 hours) Temp Pulse Resp BP Pulse Ox 09/16/19 09:00 97.7 F 70 26 H 156/68 H 99 09/16/19 04:50 98.6 F 72 36 H 157/52 H 98 Weight Admit Weight 145 lb Weight 145 lb 6.4 oz Most Recent Monitor Data Heart Rate from ECG 85 NIBP 156/80 NIBP BP-Mean 105 Respiration from ECG 27 SpO2 96 I&O: 09/15/19 09/16/19 09/17/19 06:59 06:59 06:59 Intake Total 1366 443 Output Total 1590 300 Balance -224 143 Result Diagrams: 09/14/19 03:17 09/16/19 06:15 Hospitalist ROS - Medication Medications: Active Medications Generic Name Dose Route Start Last Admin Trade Name Freq PRN Reason Stop Dose Admin Aspirin 325 mg 09/14/19 09:00 09/16/19 09:19 Ecotrin PO Not Given DAILY JASON Atorvastatin Calcium 40 mg 09/13/19 21:00 09/15/19 22:42 Lipitor PO Not Given HS JASON Dexamethasone 6 mg 09/15/19 09:00 09/16/19 09:18 Decadron SLOW IVP 6 mg DAILY JASON Administration Enoxaparin Sodium 30 mg 09/16/19 09:00 09/16/19 09:18 Lovenox SC 30 mg 0900 JASON Administration Azithromycin 500 mg/ Sodium 250 mls @ 250 mls/hr 09/14/19 14:00 09/15/19 14: 21 Chloride IVPB 250 mls 1400 JASON Administration Ceftriaxone Sodium 1 gm/ 100 mls @ 200 mls/hr 09/14/19 13:00 09/16/19 12:46 Sodium Chloride IVPB 100 mls 1300 JASON Administration Sodium Chloride 1,000 mls @ 50 mls/hr 09/13/19 16:15 09/16/19 06:31 Normal Saline 0.9% IV 1,000 mls .Q20H JASON Administration Morphine Sulfate 4 mg 09/15/19 13:37 09/16/19 12:55 Morphine SLOW IVP 4 mg Q1H PRN Administration AIR HUNGER Scopolamine 3 mg 09/16/19 11:00 09/16/19 10:13 Transderm Scop TD 3 mg Q3D JASON Administration Hosp A/P - Plan COVID Penumonia hypoxic res failure d/t abvoe Metabolic encephalopathy 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 3 li at 97% --stable to transfer to obs unit, though it appers his mentation is not at baseline -- added decadron, switched lovenox to bid doses --fw periodically ferritin, d-dimer and crp. appreciate help from Dr. Canas. - DNR -palliative c/s placed. pt on high flow O2 at 40 and sating 96% TAchypnic, high BP high inflam'y markers CRP 18 Narinder 1379 Cr 1.6 -will follow the trend in the above markers -worsening resp..situation and fever -royal neg. [] -talk to RN, if temp >100.4, repeat the blood royal -ID saw him today, will wait for the input. -scopalamine, morphine -- lopressor and hydralazine PRN for high BP -- Cw comfort care measures. Poor prognosis.
[2019-09-16] MEDS: Atorvastatin Calcium 40 MG TAB PO SCH (19:23)
[2019-09-17] MEDS: Morphine 4 MG/ML VIAL SLOW IVP PRN ×3 (02:42→09:52)
[2019-09-17] MEDS: Sodium Chloride 0.9% 1,000 ML IV SCH (04:19)
[2019-09-17 06:56] LABS: Anion Gap 15 mmol/L (10-20); BUN (Urea Nitrogen) 70 mg/dL (8.4-25.7); Calc. Creatinine Clearance 26 mL/min (70-130); Calcium 7.5 mg/dL (7.8-10.44); Carbon Dioxide 15 mmol/L (23-31); Chloride 124 mmol/L (98-107); Estimated GFR-MDRD 31; Glucose 161 mg/dL (83-110); Potassium 4.1 mmol/L (3.5-5.1); Sodium 150 mmol/L (136-145)
[2019-09-17] MEDS: Dexamethasone 4 mg/ml Vial SLOW IVP SCH (07:38)
[2019-09-17] MEDS: Enoxaparin Sodium 30 MG/0.3 ML SYRINGE SC SCH (07:39)
[2019-09-17 08:08] VITALS: BP 136/68; TEMP 98
[2019-09-17] MEDS: Aspirin 325 mg Enteric Coated Tablet PO SCH (08:42)
[2019-09-17] MEDS ORDERED: Potassium Chloride 40 MEQ in Dextrose 5% in Water 1,000 ML IV SCH (10:30)
[2019-09-17] MEDS ORDERED: Lorazepam 2 MG/ML VIAL SLOW IVP PRN (11:21)
--- NOTE | 2019-09-17 11:28 | PDOC.PALPN ---
Palliative Progress Note - Subjective On high flow O2, opens eyes but non verbal or able to follow commands. - Objective Vital Signs: Vital Signs - Most Recent Temp Pulse Resp BP Pulse Ox 98.0 F 68 36 H 136/68 95 09/17/19 08:00 09/17/19 09:50 09/17/19 09:50 09/17/19 08:00 09/17/19 09:50 - Physical Exam Constitutional: cachectic, emaciated, ill appearing, mild distress HEENT: EOMI, moist MMs, sclera anicteric Respiratory: accessory muscle use, diminished lung sound, labored respirations, tachypnea Deviation from normal: Adventicious to upper lobes Cardiovascular: RRR, diminished peripheral pulses Gastrointestinal: soft, non-tender, positive bowel sounds Genitourinary: hill catheter Deviation from normal: cyanotic nail beds to fingers Skin: bruising, fragile Deviation from normal: encephalopathic - Assessment (1) Respiratory failure Code(s): J96.90 - RESPIRATORY FAILURE, UNSP, UNSP W HYPOXIA OR HYPERCAPNIA Current Visit: Yes Status: Acute (2) Metabolic encephalopathy Code(s): G93.41 - METABOLIC ENCEPHALOPATHY Current Visit: Yes Status: Acute (3) COVID-19 Code(s): U07.1 - COVID-19 Current Visit: Yes Status: Acute (4) Physical deconditioning Code(s): R53.81 - OTHER MALAISE Current Visit: Yes Status: Acute (5) Palliative care encounter Code(s): Z51.5 - ENCOUNTER FOR PALLIATIVE CARE Current Visit: Yes Status: Acute - Plan Plan: Spoke with Dr Castellanos, son has communicated he wishes for his dad not to suffer and is requesting transition to hospice care. Added Ativan for restlessness, tachypnea. Continue Morphine PRN. Scopolamine appears to be mitigating oral secretions. Speech has seen patient and identified severe dysphagia secondary to muscle weakness and poor breath swallow coordination. Aspiration on all trials. Please also refer to Adriane Roberto RNutilization review coordinator notes *Order placed for hospice evaluation for symptom management [35] minutes spent on this encounter with >50% of the time in counseling and coordination of care. - ROS Non Response: due to mental status
[2019-09-17] MEDS: cefTRIAXone\\ROCEPHIN 1 GM in Sodium Chloride 0.9% 100 ML IVPB SCH (12:12)
[2019-09-17] MEDS: Azithromycin 500 MG in Sodium Chloride 0.9% 250 ML 250 ML IVPB SCH (13:36)
--- NOTE | 2019-09-17 15:28 | PDOC.HOSPP ---
- Subjective Encounter Date: 09/17/19 Encounter Time: 11:00 Subjective: pt not seen, palliative evaluated him, pt has crackles at the lung abses, aeration not clear. He is tachypnic and sating 95% with high flow O2, FIo2 of 50 % - Objective Vital Signs & Weight: Vital Signs (12 hours) Temp Pulse Resp BP Pulse Ox 09/17/19 09:50 68 36 H 95 09/17/19 08:00 98.0 F 71 32 H 136/68 90 L 09/17/19 04:00 99.2 F 67 29 H 142/79 H 99 Weight Admit Weight 145 lb Weight 145 lb 6.4 oz Most Recent Monitor Data Heart Rate from ECG 85 NIBP 156/80 NIBP BP-Mean 105 Respiration from ECG 27 SpO2 96 I&O: 09/16/19 09/17/19 09/18/19 06:59 06:59 06:59 Intake Total 443 800 600 Output Total 300 700 850 Balance 143 100 -250 Result Diagrams: 09/14/19 03:17 09/17/19 06:10 Hospitalist ROS - Medication Medications: Active Medications Generic Name Dose Route Start Last Admin Trade Name Victor Mq PRN Reason Stop Dose Admin Aspirin 325 mg 09/14/19 09:00 09/17/19 08:42 Ecotrin PO Not Given DAILY JASON Atorvastatin Calcium 40 mg 09/13/19 21:00 09/16/19 19:23 Lipitor PO Not Given HS JASON Dexamethasone 6 mg 09/15/19 09:00 09/17/19 07:38 Decadron SLOW IVP 6 mg DAILY JASON Administration Enoxaparin Sodium 30 mg 09/16/19 09:00 09/17/19 07:39 Lovenox SC 30 mg 0900 JASON Administration Azithromycin 500 mg/ Sodium 250 mls @ 250 mls/hr 09/14/19 14:00 09/17/19 13: 36 Chloride IVPB 250 mls 1400 JASON Administration Ceftriaxone Sodium 1 gm/ 100 mls @ 200 mls/hr 09/14/19 13:00 09/17/19 12:12 Sodium Chloride IVPB 100 mls 1300 JASON Administration Potassium Chloride 40 meq/ 1,020 mls @ 50 mls/hr 09/17/19 10:30 09/17/19 11: 22 Dextrose/Water IV 1,020 mls .[id number] JASON Administration Lorazepam 1 mg 09/17/19 11:21 09/17/19 13:36 Ativan SLOW IVP 1 mg Q4H PRN Administration Anxiety/Agitation Morphine Sulfate 4 mg 09/15/19 13:37 09/17/19 09:52 Morphine SLOW IVP 4 mg Q1H PRN Administration AIR HUNGER Scopolamine 3 mg 09/16/19 11:00 09/16/19 10:13 Transderm Scop TD 3 mg Q3D JASON Administration Hosp A/P - Plan COVID Penumonia hypoxic res failure d/t abvoe Metabolic encephalopathy 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 3 li at 97% --stable to transfer to obs unit, though it appers his mentation is not at baseline -- added decadron, switched lovenox to bid doses --fw periodically ferritin, d-dimer and crp. appreciate help from Dr. Canas. - DNR -palliative c/s placed. pt on high flow O2 at 40 and sating 96% TAchypnic, high BP high inflam'y markers CRP 18 Narinder 1379 Cr 1.6 -will follow the trend in the above markers -worsening resp..situation and fever -royal neg. [28th] -talk to RN, if temp >100.4, repeat the blood royal -ID saw him today, will wait for the input. -scopalamine, morphine -- lopressor and hydralazine PRN for high BP -- Cw comfort care measures. Poor prognosis. 2nd pt not seen today,as the palliative evaluated him. severe hypernatremia - D5 - Hospice consult - will wean him off most meds -comfort care meds only - morphine, ativan and scopalamine patch. -appreciate greatly help from palliative care.
--- NOTE | 2019-09-17 17:22 | PRG ---
DATE OF SERVICE: 09/17/2019 SUBJECTIVE: Alesia transferred to [facility]. He has been assessed by Palliative Care and he opens his eyes, but he is unable to follow commands and does not interact with the examiner, does not establish eye contact. PHYSICAL EXAMINATION: VITAL SIGNS: T-max 100.2 three days ago, it is now 98.0. BP 130/60, pulse 68. He is breathing 32 to 36 times a minute. O2 saturations are ranging from 90 to 95. He is on high-flow nasal cannula. GENERAL: He is tachypneic, does not interact with the examiner. LUNGS: Diminished breath sounds at bases. HEART: S1 and S2. ABDOMEN: Flat, scaphoid. He has indwelling Senior catheter. He has diffuse stiffness. Does not follow commands. LABORATORY DATA: White cell count 10.8, hemoglobin 13.7. Creatinine is 2.08 and we are not tracking the ferritin or CRP, he has only one value of each. Currently, he is on Decadron, Rocephin, and azithromycin. He had a chest CT on the , chronic lung changes and ground-glass opacity changes. ASSESSMENT AND DISCUSSION: Malnutrition, hypertension, prior cerebrovascular accident, COVID pneumonia with severe manifestation, on high-flow O2. Palliative Care consulted. On Decadron. Discontinue Rocephin and azithromycin. Job ID: [id number]
--- NOTE | 2019-09-18 15:59 | DIS ---
DATE OF ADMISSION: 09/13/2019 DATE OF DISCHARGE: 09/17/2019 DISCHARGE DIAGNOSES: 1. COVID pneumonia, with severe manifestation, requiring high-flow oxygen. 2. Hypoxic respiratory failure. 3. Metabolic encephalopathy. 4. Cerebrovascular accident with left hemiparesis. 5. Chronic kidney disease. 6. Metabolic acidosis. 7. Hypertension. 8. Protein calorie moderate malnutrition. 9. Hypertension. 10. COVID pneumonia Pertinent lab markers, CRP was 18, ferritin level 1379, creatinine 1.6. HOSPITAL COURSE: This is an 79-year-old male, admitted with COVID pneumonia positive. He had stroke-like symptoms on initial presentation. He used to be functional at baseline. Prior to this, he was not evaluated for stroke, though symptoms are 2 months old. He was worsening the last few days including somnolence and poor p.o. intake. On the day of admission, the family was out of town, and the son asked the neighbors to check and neighbor found the patient being very confused, so he was brought in. COVID was positive. The duration of the illness is not clear. He has received azithromycin, Rocephin as well as Decadron. Due to worsening of his hypoxic condition, he was on high-flow oxygen. The patient did not improve despite the medical management. Palliative helped with goals of care with family and code status changed to DNAR. Hospice referral made. The patient is transferred to inpatient hospice. His prognosis is quite poor. Job ID: [id number] MTDD
== END 2019-09-17 21:09 | disposition hospice, inpatient (51) | DRG 871 ==
LOC: ERS 11:18 → 2SW 16:55 → CCU 21:23 → T4-B 09-14 22:36
PROVIDERS: ADMIT Internal Medicine; ATTEND Internal Medicine
PROC: 8E0ZXY6 Isolation (ICD-10-PCS; principal; 2019-09-13)
DX: A41.89 Other specified sepsis (principal); U07.1 COVID-19; G93.41 Metabolic encephalopathy; J12.89 Other viral pneumonia; J96.01 Acute respiratory failure with hypoxia; I63.9 Cerebral infarction, unspecified; E46 Unspecified protein-calorie malnutrition; Z68.1 Body mass index [BMI] 19.9 or less, adult; E87.2 Acidosis; R64 Cachexia; G81.94 Hemiplegia, unspecified affecting left nondominant side; E87.0 Hyperosmolality and hypernatremia; Z51.5 Encounter for palliative care; Z66 Do not resuscitate; F17.210 Nicotine dependence, cigarettes, uncomplicated; N18.3 Chronic kidney disease, stage 3 (moderate); I12.9 Hypertensive chronic kidney disease with stage 1 through stage 4 chronic kidney disease, or unspecified chronic kidney disease; Z88.5 Allergy status to narcotic agent; Z88.8 Allergy status to other drugs, medicaments and biological substances; Z79.82 Long term (current) use of aspirin; Z79.899 Other long term (current) drug therapy
CPT/HCPCS: 36415; 70450; 71045; 71275; 72125; 80048; 80053; 80061; 80306; 80307; 81003; 81015; 82140; 82550; 82553; 82728; 82805; 83605; 83690; 83880; 84443; 84484; 85025; 85379; 85610; 85730; 86140; 87040; 87635; 93005; 96360; 96361; 96365; 96367; J0456; J0696; J1100; J1650; J2060; J2270; J3480; J3490; J7050; J7070; Q9967; U0003

== ENCOUNTER 2019-09-17 21:22 | Inpatient (IN) | payer MEDICARE, OTHER ==
[2019-09-17] MEDS ORDERED: Ondansetron PF 4 MG/2 ML Vial IVP PRN (21:33)
[2019-09-17] MEDS ORDERED: Scopolamine 1.5 mg/72 hour Patch TOP PRN (21:33)
[2019-09-17] MEDS ORDERED: Lorazepam 2 MG/ML VIAL SLOW IVP PRN (21:35)
[2019-09-17] MEDS ORDERED: Bisacodyl 10 MG SUPP PR PRN (21:36)
[2019-09-17] MEDS ORDERED: Morphine 2 MG/ML VIAL SLOW IVP PRN (21:36)
[2019-09-17] MEDS ORDERED: Lorazepam 2 MG/ML VIAL SLOW IVP SCH (21:45)
[2019-09-17] MEDS: Morphine 4 MG/ML VIAL SLOW IVP SCH (22:00)
[2019-09-18] MEDS: Lorazepam 2 MG/ML VIAL SLOW IVP SCH ×7 (00:17→23:56)
[2019-09-18] MEDS: Morphine 4 MG/ML VIAL SLOW IVP SCH ×6 (02:25→22:15)
[2019-09-19] MEDS: Morphine 4 MG/ML VIAL SLOW IVP SCH ×4 (01:51→14:32)
[2019-09-19] MEDS: Lorazepam 2 MG/ML VIAL SLOW IVP SCH ×3 (03:44→12:04)
[2019-09-19 09:00] VITALS: BP 103/61; TEMP 98.4
--- NOTE | 2019-09-22 13:33 | DIS ---
DATE OF ADMISSION: 09/17/2019 DATE OF DISCHARGE: 09/19/2019 DATE OF INPATIENT HOSPICE : 09/19/2019 at 12:15 p.m. BRIEF SUMMARY OF HOSPITAL COURSE: The patient was an 79-year-old white male, who was admitted to [facility] on 09/13/2019. He was found to have COVID pneumonia with severe manifestation, requiring high-flow oxygen with hypoxic respiratory failure and metabolic encephalopathy. During his acute care admission, he received azithromycin, Rocephin, as well as Decadron. He had worsening of his hypoxia and was placed on high-flow oxygen. The patient did not improve despite medical management. After discussion with the family, it was determined that the patient was terminal and requested the patient to be DNAR and discharged from acute stay and rather be admitted to hospice for end of life care. During his hospice admission, high-flow oxygen was discontinued, thus the family was allowed to visit end of the patient's life. He was given morphine for terminal restlessness as well as air hunger and pain and IV Ativan for terminal restlessness as well. The patient was made comfortable and was noted by nursing staff on 09/19/2019 at 12:15 p.m., the patient had stopped breathing. They were unable to auscultate heart rate. Charge nurse was notified. The patient was pronounced at 12:15. Body was released to the home per the patient's family's wishes. Cause of was likely asystole secondary to cardiac arrhythmia due to hypoxic respiratory failure from COVID pneumonia. Job ID: [id number]
== END 2019-09-19 14:49 | disposition expired | DRG 951 ==
LOC: T4-B 21:22
PROVIDERS: ADMIT Family Medicine; ATTEND Family Medicine
DX: Z51.5 Encounter for palliative care (principal); J18.9 Pneumonia, unspecified organism; J96.01 Acute respiratory failure with hypoxia; G93.41 Metabolic encephalopathy; E87.2 Acidosis; E87.3 Alkalosis; M62.82 Rhabdomyolysis; Z66 Do not resuscitate; I12.9 Hypertensive chronic kidney disease with stage 1 through stage 4 chronic kidney disease, or unspecified chronic kidney disease; N18.3 Chronic kidney disease, stage 3 (moderate); Z88.5 Allergy status to narcotic agent; Z88.0 Allergy status to penicillin; Z88.8 Allergy status to other drugs, medicaments and biological substances
CPT/HCPCS: J2060; J2270